=== PATIENT | female | born 1955 | race Caucasian/White ===

== ENCOUNTER 2023-05-01 08:31 | Day surgery (SDC) | payer MEDICARE, BC ==
[2023-05-01] MEDS: Lactated Ringers 1,000 ML IV SCH (08:55)
[2023-05-01] MEDS ORDERED: Lidocaine 2% 5 ML SDV ONE (10:30)
[2023-05-01] MEDS ORDERED: Propofol 200 MG/20 ML SDV ONE (10:33)
[2023-05-01 12:11] VITALS: BP 122/72; PULSE 80
== END 2023-05-01 12:08 | disposition home or self-care (01) ==
LOC: JD.SDS 08:31
PROVIDERS: ATTEND Surgery
DX: K29.50 Unspecified chronic gastritis without bleeding (principal); K31.89 Other diseases of stomach and duodenum; R13.10 Dysphagia, unspecified; K31.7 Polyp of stomach and duodenum; K29.80 Duodenitis without bleeding; K29.70 Gastritis, unspecified, without bleeding; E78.5 Hyperlipidemia, unspecified; I10 Essential (primary) hypertension; R09.89 Other specified symptoms and signs involving the circulatory and respiratory systems; R09.A2 Foreign body sensation, throat; E87.1 Hypo-osmolality and hyponatremia; Z88.2 Allergy status to sulfonamides; Z88.8 Allergy status to other drugs, medicaments and biological substances; Z88.1 Allergy status to other antibiotic agents; Z87.891 Personal history of nicotine dependence; Z79.899 Other long term (current) drug therapy
CPT/HCPCS: 43239; J2704; J7120; 00731; 88305; 88312; 88342; J3490